=== PATIENT | male | born 1990 | race African-American/Black ===

== ENCOUNTER 2020-02-21 15:25 | Emergency (ER) | payer OTHER ==
[~2020-02-21] VITALS: Ht 185.4 cm; Wt 99.1 kg
[2020-02-21] MEDS ORDERED: MORPHINE 2 MG/ML 1ML VIAL (J2270) IV ONE (16:00)
[2020-02-21 16:36] LABS: BASO % 0.6 % (0.0-1.0); EOS % 0.4 % (0.0-3.0); HEMATOCRIT 50.4 % (42.0-52.0); HEMOGLOBIN 16.4 g/dl (13.5-17.5); LYMPH # 1.5 10^3/uL (1.5-5.0); LYMPH % 28.9 % (24.0-44.0); MEAN CORPUSCULAR HGB CONC 32.5 g/dl (32.0-36.5); MONO # 0.8 10^3/uL (0.0-0.8); MONO % 15.6 % (0.0-5.0); NEUTROPHILS # 2.8 10^3/uL (1.5-8.5); NEUTROPHILS % 54.3 % (36.0-66.0); PLATELET COUNT, AUTOMATED 339 10^3/uL (150-450); RED BLOOD COUNT 5.66 10^6/uL (4.30-6.10); WHITE BLOOD COUNT 5.1 10^3/uL (4.0-10.0)
[2020-02-21 17:02] LABS: BLOOD UREA NITROGEN 9 MG/DL (7-18); CALCIUM LEVEL 8.9 MG/DL (8.5-10.1); CARBON DIOXIDE LEVEL 27 MEQ/L (21-32); CHLORIDE LEVEL 106 MEQ/L (98-107); CREATININE FOR GFR 1.61 MG/DL (0.70-1.30); GLOMERULAR FILTRATION RATE > 60.0 (>60); GLUCOSE, FASTING 122 MG/DL (70-100); POTASSIUM SERUM 3.8 MEQ/L (3.5-5.1); SODIUM LEVEL 139 MEQ/L (136-145)
--- NOTE | 2020-02-21 17:21 | REP ---
REASON: Trauma. PRIORS: None. TECHNIQUE: 4.5 mm contiguous transaxial sections were obtained from the skull base to the cerebral convexities with thin cuts through the posterior fossa without the administration of intravenous contrast. FINDINGS: The ventricles and sulci are consistent with the patient's age. There are no extra-axial fluid collections. There is no mass effect. The deep cerebral white matter is consistent with the patient's age. The orbital and petrous structures , cerebellopontine angles, and posterior fossa are unremarkable. The sella turcica, cavernous, and paracavernous structures are essentially unremarkable. The visualized portions of the paranasal sinuses and mastoid air cells are clear. Images of the skull base show no gross abnormality. IMPRESSION: Essentially unremarkable CT examination of the brain. Electronically Signed by Chicho Vazquez DO 02/22/2020 10:54 A
--- NOTE | 2020-02-21 17:23 | REP ---
REASON: Pain in neck after trauma. Vertebral body height alignment is within normal limits. The disc spaces are symmetric and well maintained. The facet joints are well aligned bilaterally. There is no evidence of a fracture. There is no abnormal paraspinal soft tissue swelling. IMPRESSION: Negative exam. Electronically Signed by Chicho Vazquez DO 02/22/2020 10:54 A
--- NOTE | 2020-02-21 17:24 | REP ---
CT LUMBAR SPINE: CT lumbar spine performed in the axial plane. Sagittal and coronal reconstruction images are performed. There is no compression fracture. There is normal alignment and lumbar lordosis. Disc spaces are well preserved. No abnormal densities seen in the spinal canal. IMPRESSION: No acute fracture or dislocation. Electronically Signed by Yordan Rodriguez MD 02/21/2020 07:50 P
--- NOTE | 2020-02-21 17:48 | REP ---
LEFT FEMUR, AP AND LATERAL: There is no evidence of an acute fracture, dislocation or intrinsic bone disease. There is a benign bone island in the proximal femur. IMPRESSION: No fracture or dislocation. Electronically Signed by Yordan Rodriguez MD 02/21/2020 07:52 P
--- NOTE | 2020-02-21 17:49 | REP ---
LEFT HUMERUS, TWO VIEWS: There is no evidence of an acute fracture, dislocation or intrinsic bone disease. IMPRESSION: No fracture or dislocation. Electronically Signed by Yordan Rodriguez MD 02/21/2020 07:52 P
--- NOTE | 2020-02-21 17:49 | REP ---
LEFT LOWER LEG, AP AND LATERAL: There is no evidence of an acute fracture, dislocation or intrinsic bone disease. IMPRESSION: No fracture or dislocation. Electronically Signed by Yordan Rodriguez MD 02/21/2020 07:51 P
--- NOTE | 2020-02-21 17:50 | REP ---
LEFT HAND, TWO VIEWS: There is no evidence of an acute fracture, dislocation or intrinsic bone disease. IMPRESSION: No fracture or dislocation. Electronically Signed by Yordan Rodriguez MD 02/21/2020 07:52 P
--- NOTE | 2020-02-21 17:50 | REP ---
LEFT FOREARM, TWO VIEWS: There is no evidence of an acute fracture, dislocation or intrinsic bone disease. IMPRESSION: No fracture or dislocation. Electronically Signed by Yordan Rodriguez MD 02/21/2020 07:52 P
[2020-02-21 18:01] VITALS: BP 109/57
== END 2020-02-21 18:08 | disposition home or self-care (01) ==
LOC: M ED 15:25 → EDBD 15:25 → M ED 18:08
DX: S60.512A Abrasion of left hand, initial encounter (principal); T14.8XXA Other injury of unspecified body region, initial encounter; V49.88XA Car occupant (driver) (passenger) injured in other specified transport accidents, initial encounter; Y92.410 Unspecified street and highway as the place of occurrence of the external cause
CPT/HCPCS: 70450; 72125; 72131; 73060; 73090; 73130; 73552; 73590; 80048; 85025; 93041; 94760; 96374; 99284; J2270